=== PATIENT | male | born 1945 | race Caucasian/White ===

== ENCOUNTER 2020-09-06 03:37 | Inpatient (IN) | payer OTHER, MEDICARE ==
[~2020-09-06] VITALS: Ht 177.8 cm; Wt 84.4 kg
[~2020-09-06 03:37] MED LIST: ALLO300T PO; ASPI325T14 PO; ATOR80TA PO; CARB1DRO8 OP; CLOP75TA52 PO; ISOS60TA2 PO; LISI40TA PO; METF500T17 PO; METO50TA6 PO; OMEP20CA19 PO; RANO500T2 PO; ROPI0.254 PO
[2020-09-06] MEDS ORDERED: TYLENOL PO STA (04:20)
--- NOTE | 2020-09-06 04:25 | ER.PDOC ---
General Chief Complaint: Requesting Medical Care Stated Complaint: COUGH,CHILLS,CONGESTION,VOMITING Time seen by MD: 04:24 Source: patient Exam Limitations: no limitations History of Present Illness Initial Comments Fever, chills, cough, congestion and SOB for 2 days. Timing/Duration: gradual Severity: moderate Associated Symptoms: fever/chills, runny nose, cough, mild SOB Allergies: Coded Allergies: No Known Drug Allergies (Verified Allergy, Unknown, 05/20/20) Home Meds Active Scripts Metformin Hcl (METFORMIN HCL) 500 Mg Tablet, 500 MG PO BID, #60 TAB Prov:TERRI MASTERS DO 05/21/20 Ranolazine (RANEXA) 500 Mg Tab.er.12h, 500 MG PO BID for 30 Days, TAB Prov:TERRI MASTERS E DO 05/21/20 Reported Medications Allopurinol (ALLOPURINOL) 300 Mg Tablet, 300 MG PO DAILY24, TAB 05/19/20 Ropinirole Hcl (ROPINIROLE HCL) 0.25 Mg Tablet, 0.25 MG PO DAILY24, TAB 05/19/20 Aspirin (ASPIRIN) 325 Mg Tablet, 325 MG PO DAILY24, TABLET 05/19/20 Carboxymethylcellulose Sodium (LUBRICANT EYE DROPS) 1 Each Droperette, 1 EACH OP QID, DROP 05/19/20 Omeprazole (OMEPRAZOLE) 20 Mg Capsule.dr, 20 MG PO TIW, CAPSULE 05/19/20 Isosorbide Mononitrate (ISOSORBIDE MONONITRATE ER) 60 Mg Tab.er.24h, 60 MG PO DAILY24, TABLET 05/19/20 Metoprolol Tartrate 50MG (LOPRESSER 50MG) 50 Mg Tablet, 50 MG PO BID for HYPERTENSION, #60 TAB 05/19/20 Clopidogrel Bisulfate (PLAVIX) 75 Mg Tablet, 75 MG PO DAILY24, TAB 05/19/20 Atorvastatin 80MG (LIPITOR 80MG) 80 Mg Tablet, 80 MG PO DAILY24, TAB 05/19/20 Lisinopril (LISINOPRIL) 40 Mg Tablet, 40 MG PO DAILY24, TAB 05/19/20 Constitutional: see HPI EENTM: see HPI Respiratory: see HPI Cardiovascular: no symptoms reported Gastrointestinal: no symptoms reported All Other Systems: Reviewed and Negative Past Medical History Medical History: coronary artery disease, cardiac problems, GERD, high cholesterol, heart attack, hypertension, vascular disease Surgical History: cardiac cath, coronary bypass surgery, pacemaker/ICD, stent Family History Significant Family History: no pertinent family hx Social History Smoking: non-smoker Drug Use: none Physical Exam General Appearance: alert, no distress Nose: nose nml Throat: pharynx nml, airway nml Neck: nml inspection, supple Respiratory: no resp.distress, rales Abdomen: non-tender, no organomegaly CVS: reg rate & rhythm, heart sounds nml Skin: color nml, no rash, warm/dry Extremities: non-tender, nml ROM, no pedal edema NEURO/PSYCH: oriented x 3, CN's nml as tested, motor nml, sensation nml, mood/affect nml Results/Orders Results/Orders Orders - CHRISTOS LOVE MD Arterial Blood Gas (09/06/20 04:20) Cbc With Auto Diff (09/06/20 04:20) Creatine Kinase Mb (09/06/20 04:20) Troponin I (09/06/20 04:20) PT (09/06/20 04:20) Partial Thromboplastin Time. (09/06/20 04:20) Ekg-Routine (09/06/20 04:20) Xr Chest 1v (09/06/20 04:20) Influenza A&B (09/06/20 04:20) Strep Screen (09/06/20 04:20) Covid19 Antigen Ayaka Meredith (09/06/20 04:20) Lactic Acid(Ml) (09/06/20 04:20) Procalcitonin (09/06/20 04:20) Acetaminophen (Tylenol) (09/06/20 04:20) Acetaminophen (Tylenol) (09/06/20 05:04) Lactate Dehydrogenase (09/06/20 05:09) Ferritin(Ml) (09/06/20 05:09) C-Reactive Protein (09/06/20 05:09) Ct Chest Wo Iv Contrast (09/06/20 05:31) Comprehensive Metabolic Panel (09/06/20 05:46) Vital Signs Date Time Temp Pulse Resp B/P (MAP) Pulse Ox O2 Delivery O2 Flow Rate FiO2 09/06/20 04:30 100.8 68 20 09/06/20 04:30 100.8 20 120/50 (73) 90 Room Air 09/06/20 04:30 100.8 68 20 90 Administered Medications Medications (Trade) Dose Ordered Sig/Jose Alfredo Route PRN Reason Start Time Stop Time Status Last Admin Dose Admin Acetaminophen (Tylenol) 1,000 mg STAT STAT PO 09/06/20 04:20 09/06/20 04:25 DC 09/06/20 05:05 1,000 MG Laboratory Tests Test 09/06/20 04:30 09/06/20 04:45 09/06/20 04:52 09/06/20 05:57 White Blood Count 10.7 10^3/uL (4.5-11.0) Red Blood Count 4.64 10^6/uL (4.50-5.90) Hemoglobin 13.5 g/dL (13.9-16.3) L Hematocrit 40.9 % (37.0-53.0) Mean Corpuscular Volume 88.1 fL (78-100) Mean Corpuscular Hemoglobin 29.1 pg (26-34) Mean Corpuscular Hemoglobin Concent 33.0 g/dL (33-36.5) Red Cell Distribution Width 14.7 % (11.5-14.5) H Platelet Count 196 10^3/uL (150-400) Mean Platelet Volume 10.5 fL (7.8-11.0) Neutrophils (%) (Auto) 87.3 % (41.0-85.0) H Lymphocytes (%) (Auto) 5.6 % (24.0-44.0) *L Monocytes (%) (Auto) 5.9 % (5.0-12.0) Neutrophils # (Auto) 9.4 10^3/uL (1.8-7.7) H Lymphocytes # (Auto) 0.60 10^3/uL1 (1.0-4.8) L Monocytes # (Auto) 0.6 10^3/uL (0.3-0.8) Absolute Immature Granulocyte (auto 0.02 10^3 u/L (0-2) Absolute Eosinophils (auto) 0.1 10^3/uL (0.0-0.2) Immature Granulocytes % 0.20 % (0.00-0.50) Eosinophils % 0.8 % (0.0-5.0) Basophils % 0.2 % (0.0-0.2) Basophils # 0.0 10^3/uL (0.0-0.1) Prothrombin Time 10.4 SEC (9.3-11.3) Prothrombin Time INR (Non-Therap) 1.0 Activated Partial Thromboplast Time 22.7 SEC (24.67-30.72) Sodium Level 145 mmol/L (132-145) Potassium Level 4.3 mmol/L (3.6-5.2) Chloride Level 109.0 mmol/L (96-109) Carbon Dioxide Level 25.8 mmol/L (20.0-32) Anion Gap 14.5 Blood Urea Nitrogen 28 mg/dL (7-18) H Creatinine 1.15 mg/dL (0.59-1.40) Estimated GFR () 74.6 (>/=60) Est GFR (CKD-EPI)(Non-Afr [place]) 61.7 (>/=60) BUN/Creatinine Ratio 24.0 Glucose Level 118 mg/dL (70-110) H Lactic Acid Level 1.4 mmol/L (0.5-1.9) Calcium Level 8.8 mg/dL (8.4-10.5) Ferritin 42 ng/mL (26-388) Total Bilirubin 0.6 mg/dL (0.2-1.0) Aspartate Amino Transferase (AST) 19 U/L (0-35) Alanine Aminotransferase (ALT) 24 U/L (12-78) Alkaline Phosphatase 85 U/L (50-136) Lactate Dehydrogenase 228 U/L (85-227) H Creatine Kinase MB 1.1 ng/mL (0.5-3.6) Troponin I < 0.02 ng/mL (0.00-0.05) C-Reactive Protein 0.55 mg/dL (0.00-5.00) Total Protein 6.4 g/dL (6.4-8.2) Albumin 3.8 g/dL (3.4-5.0) Globulin 2.6 Albumin/Globulin Ratio 1.461 Procalcitonin 0.06 ng/mL (0.05-0.5) Blood Gas Sample Site RB Blood pH 7.445 (7.350-7.450) Blood Gas PCO2 31.5 mmHg (35.0-45.0) L Blood Gas PO2 55.4 mmHg (80.0-100.0) L Blood Gas HCO3 21.2 mmol/L (22.0-26.0) L Blood Gas Base Excess -2.0 mmol/L (-2.0-2.0) Maxx Test POSITIVE Arterial Blood Oxygen Saturation 89.6 % (94.0-97.00) L Deoxyhemoglobin 10.3 % (0.0-5.0) H Carboxyhemoglobin 0.7 % (0.0-3.9) Methemoglobin 0.1 % (0.00-5.0) Total Hemoglobin 13.6 % (12.0-17.8) Total Oxygen Concentration 17.0 % (13.5-17.5) Blood Gas Temperature 37 Oxygen Delivery Method ROOM AIR FiO2 21 % (20-101) Total Carbon Dioxide 22.1 mmol/L (23-27) L SARS-CoV-2 Antigen (Rapid) NEGATIVE (NEGATIVE) Influenza Type A Antigen NEGATIVE (NEG) Influenza B Immunofluorescence NEGATIVE (NEG) Group A Streptococcus Screen POSITIVE (NEGATIVE) EKG/XRAY/CT/US EKG: NSR, LBBB, no ST T wave changes EKG Comments: rate 65 CT Comments: Multi lobar infiltrates , left greater than right ER DEPART Departure Time of Disposition: 06:30 Disposition: 09 ADMITTED INPATIENT Impression: Primary Impression: Respiratory failure with hypoxia Additional Impression: Pneumonia Condition: Stable Referrals: SMITA DEL RIO MD (PCP) PRIMARY CARE PROVIDER Comments Admitted to Dr. Hanley Duration or Time Spent with Pa: 60 min Problem Qualifiers Primary Impression: Respiratory failure with hypoxia Chronicity: acute Qualified Codes: J96.01 - Acute respiratory failure with hypoxia Additional Impression: Pneumonia Pneumonia type: due to unspecified organism Laterality: bilateral Lung location: unspecified part of lung Qualified Codes: J18.9 - Pneumonia, unspecified organism CHRISTOS LOVE MD Sep 06, 2020 04:25
--- NOTE | 2020-09-06 04:28 | PCM.EKG ---
[facility] Test Date: 2020-09-06 Test Time: 04:23:18 Pat Name: LUKAS MIMS Department: Room: Gender: M [employer]: PRECIOUS : 1945 Requested By: CHRISTOS LOVE Order Number: [id number] Reading MD: Christos LOVE Measurements Intervals [place] Rate: 65 P: -22 [place]: 139 QRS: -20 QRSD: 148 T: 33 QT: 458 QTc: 477 Interpretive Statements Sinus rhythm Left atrial enlargement Right bundle branch block Compared to ECG 05/20/2020 10:27:25 Atrial abnormality now present Electronically Signed On 09-07-2020 1:02:33 [employer] by Christos LOVE Please click the below link to view image of tracing.
[2020-09-06 04:30] VITALS: BP 120/50
[2020-09-06 04:39] LABS: BASOPHIL % 0.2 % (0.0-0.2); EOSINOPHIL # 0.1 10^3/uL (0.0-0.2); EOSINOPHIL % 0.8 % (0.0-5.0); LYMPHOCYTES % 5.6 % (24.0-44.0); MEAN CORP HGB 29.1 pg (26-34); MONOCYTES # 0.6 10^3/uL (0.3-0.8); MONOCYTES % 5.9 % (5.0-12.0); NEUTROPHIL # 9.4 10^3/uL (1.8-7.7); NEUTROPHILS % 87.3 % (41.0-85.0); PLATELET COUNT 196 10^3/uL (150-400); RED CELL DISTRIBUTION WIDTH 14.7 % (11.5-14.5)
[2020-09-06 04:55] LABS: ABG PCO2 31.5 mmHg (35.0-45.0); ABG PH 7.445 (7.350-7.450); HCO3act 21.2 mmol/L (22.0-26.0); pO2 55.4 mmHg (80.0-100.0)
--- NOTE | 2020-09-06 04:59 | DIREP ---
PROCEDURE:CHEST 1 VIEW COMPARISON:[facility], CR, XRAY CHEST SINGLE VW, 05/19/2020, 08:38 PM. INDICATIONS:Cough and SOB FINDINGS: LUNGS/PLEURA:New area of airspace consolidation within the left perihilar region. Interval clearing of the right upper lung. VASCULATURE:Normal. Unremarkable pulmonary vasculature. CARDIAC:Normal. No cardiac silhouette abnormality or cardiomegaly. MEDIASTINUM:Normal. No visible mass or adenopathy. BONES:Normal. No fracture or visible bony lesion. OTHER:Stable left-sided cardiac pacing device. Median sternotomy wire CONCLUSION:Improved appearance of the right upper lung with new focus of airspace disease in the left perihilar lung. Dictated by: Jorge Benites DO on 09/06/2020 at 04:52 AM
[2020-09-06] MEDS ORDERED: TYLENOL PO ONE (05:04)
--- NOTE | 2020-09-06 05:15 | NUR ---
PT STATUS PT WAS TRIAGED AT 0355. AFTER DR. SHER SPOKE WITH PATIENT AN IV WAS STARTED AND LABS WERE DRAWN. PT WAS COVID SWABBED AT 0425. PT ALSO HAD A CHEST XRAY AND AN ABG DONE. ABG SHOWED THAT O2 WAS LOW, SO PT WAS PUT ON 2L OF OXYGEN VIA NC, OXYGEN HAS COME UP TO 95%. STILL AWAITING RESULTS OF CHEST XRAY AND COVID TEST AT THIS TIME, WILL CONTINUE TO MONITOR.
[2020-09-06 06:03] LABS: CALCIUM 8.8 mg/dL (8.4-10.5); CARBON DIOXIDE 25.8 mmol/L (20.0-32)
--- NOTE | 2020-09-06 06:03 | NUR ---
PT WAS SWABBED FOR FLU AND STREP AT 0557, AND THE WERE DROPPED OFF AT THE LAB AT 0600. PT'S COVID SWAB CAME BACK NEGATIVE. WILL CONTINUE TO MONITOR.
--- NOTE | 2020-09-06 06:12 | DIREP ---
PROCEDURE:CT CHEST W/O COMPARISON:None. INDICATIONS:Cough and SOB TECHNIQUE:Helical sections through the chest were performed from the lung apices through the diaphragms without IV contrast. Sagittal and coronal reconstructions are obtained from source images. FINDINGS: LUNGS:Patchy multi lobar infiltrates within the left lung upper and lower lobes. Patchy airspace disease also noted within the right upper lobe posteriorly.. PLEURA:Normal. No mass or effusion. CARDIAC:Cardiomegaly. Significant [place] coronary artery disease with post CABG changes.. MEDIASTINUM:Normal. No mass or adenopathy. MARIBEL:Normal. No mass or adenopathy. AORTA:Normal. No aneurysm. CHEST WALL:Normal. No mass or axillary adenopathy. LIMITED ABDOMEN:Significant atherosclerosis of the abdominal aorta. Limited images of the upper abdomen are unremarkable. BONES:Normal. No bony lesion or fracture. OTHER:Negative. CONCLUSION:Multi lobar infiltrates , left greater than right Dictated by: Jorge Benites DO on 09/06/2020 at 06:05 AM
--- NOTE | 2020-09-06 06:16 | NUR ---
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 EDP DR. LOVE AWARE
[2020-09-06] MEDS ORDERED: ZITHROMAX 500 MG in NS 250ML 250 ML IV STA ×2 (06:31→08:24)
[2020-09-06] MEDS ORDERED: ROCEPHIN 1,000 MG in NS 100ML 100 ML IV STA ×2 (06:31→08:24)
[2020-09-06] MEDS ORDERED: ATOR40TA PO (06:33)
[2020-09-06] MEDS ORDERED: ISOS30TA4 PO (06:33)
[2020-09-06] MEDS ORDERED: LISI-410 PO (06:33)
[2020-09-06] MEDS ORDERED: METO25TA4 PO (06:33)
[2020-09-06] MEDS ORDERED: CLOP75TA PO (06:33)
[2020-09-06] MEDS ORDERED: NS 250ML 250 ML IV ONE (08:11)
[2020-09-06] MEDS ORDERED: ROCEPHIN ONE (08:11)
[2020-09-06 08:32] LABS: LYMPHOCYTE 12 % (25-36); MONOCYTE 5 % (3-9); SEGMENTED NEUTROPHILS 83 % (31-76)
[2020-09-06 09:00] VITALS: BP 117/53
[2020-09-06] MEDS ORDERED: VENTOLIN IH PRN (09:00)
--- NOTE | 2020-09-06 09:00 | NUR ---
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
--- NOTE | 2020-09-06 09:02 | PCM.HP ---
History of Present Illness Reason for Visit: URI symptoms History of Present Illness Pt is a 75 y/o M with PMHx notable for extensive Cardiac disease, CAD s/p multiple CABGs and stents currently on DAPT, severe PAD s/p arterial bypasses, HFpEF, HTN, HLD, who presented to the ED with symptoms of rhinorrhea, subjective fever, sore throat, and mild shob that started just yesterday. He denies any other symptoms of chest pain, LH/dizziness, sputum production, abdominal pain, n/v/d/d, urinary symptoms. He also denies sick contacts, but does mention a recent trip [~3 weeks ago] to [place] to visit a cousin of his. Otherwise no travel. In the ED, he was noted to be mildly febrile to 100.8F, but otherwise hemody namically stable. Per ED provider, he was hypoxemic at one point, but this was not documented amongst his vitals. His ABG showed PaO2 of 52, however. His labs were overall unremarkable beyond a positive Rapid Strep A test. COVID testing was negative, as were troponin, BNP, and WBC. CXR, however, showed a consolidation in the Left Perihilar region, and CT Chest showed "Patchy multi lobar infiltrates within the left lung upper and lower lobes. Patchy airspace disease also noted within the right upper lobe posteriorly". By the time I saw the patient on the general medical floor, he was satting 95% on RA and virtually asymptomatic. However, given his heart history and other comorbidities, he agreed to stay for further monitoring and antibiotics Travel Hx EBOLA RISK:Travel to/contact w: No Review of Systems Other Review of systems including general, HEENT, neck, cardiopulmonary, GI, , neuro-musculoskeletal, hematologic, oncologic, endocrinology, infectious disease, dermatologic and psychiatric were reviewed with the patient and are negative unless otherwise noted in the HPI. Exam Vital Signs Vital Signs Date Time Temp Pulse Resp B/P (MAP) Pulse Ox O2 Delivery O2 Flow Rate FiO2 09/06/20 04:30 100.8 68 20 09/06/20 04:30 120/50 (73) 90 Room Air General Appearance: Alert, Oriented X3, Cooperative, No acute distress HEENT: Atraumatic, PERRLA, EOMI, Mucous membr. moist/pink Respiratory: Other (Some faint rales in Right lower lobe. More diminished, with rales and occasional rhonchi in mid-lower left lung) Cardiovascular: Regular rate, Normal S1, Normal S2, No murmurs Abdominal: Normal bowel sounds, Soft, No tenderness, No hepatospenomegaly, No masses Extremities: No clubbing, No cyanosis, No edema, Normal pulses, No tenderness/swelling Skin: No rash, No breakdown, No lesions Neuro: Normal speech, Strength at 5/5 X4 ext, Normal tone, Sensation intact Psych/Mental Status: Mental status NL, Mood NL Meds/Labs/Orders Medication List: Current Medications Medications (Trade) Dose Ordered Sig/Jose Alfredo PRN Reason Start Time Stop Time Status Last Admin Azithromycin 500 mg/Sodium Chloride 250 ml @ 175 mls/hr STAT STAT 09/06/20 08:24 09/06/20 09:49 09/06/20 08:27 Ceftriaxone Sodium 1000 mg/ Sodium Chloride 100 ml @ 100 mls/hr STAT STAT 09/06/20 08:24 09/06/20 09:23 09/06/20 08:27 Lab results: Laboratory Tests Test 09/06/20 04:30 09/06/20 04:45 09/06/20 04:50 09/06/20 04:52 White Blood Count 10.7 10^3/uL Red Blood Count 4.64 10^6/uL Hemoglobin 13.5 g/dL Hematocrit 40.9 % Mean Corpuscular Volume 88.1 fL Mean Corpuscular Hemoglobin 29.1 pg Mean Corpuscular Hemoglobin Concent 33.0 g/dL Red Cell Distribution Width 14.7 % Platelet Count 196 10^3/uL Mean Platelet Volume 10.5 fL Neutrophils (%) (Auto) 87.3 % Lymphocytes (%) (Auto) 5.6 % Monocytes (%) (Auto) 5.9 % Neutrophils # (Auto) 9.4 10^3/uL Lymphocytes # (Auto) 0.60 10^3/uL1 Monocytes # (Auto) 0.6 10^3/uL Absolute Immature Granulocyte (auto 0.02 10^3 u/L Absolute Eosinophils (auto) 0.1 10^3/uL Immature Granulocytes % 0.20 % Eosinophils % 0.8 % Basophils % 0.2 % Basophils # 0.0 10^3/uL Prothrombin Time 10.4 SEC Prothrombin Time INR (Non-Therap) 1.0 Activated Partial Thromboplast Time 22.7 SEC Sodium Level 145 mmol/L Potassium Level 4.3 mmol/L Chloride Level 109.0 mmol/L Carbon Dioxide Level 25.8 mmol/L Anion Gap 14.5 Blood Urea Nitrogen 28 mg/dL Creatinine 1.15 mg/dL Estimated GFR () 74.6 Est GFR (CKD-EPI)(Non-Afr Eritrean) 61.7 BUN/Creatinine Ratio 24.0 Glucose Level 118 mg/dL Lactic Acid Level 1.4 mmol/L Calcium Level 8.8 mg/dL Ferritin 42 ng/mL Total Bilirubin 0.6 mg/dL Aspartate Amino Transf (AST/SGOT) 19 U/L Alanine Aminotransferase (ALT/SGPT) 24 U/L Alkaline Phosphatase 85 U/L Lactate Dehydrogenase 228 U/L Creatine Kinase MB 1.1 ng/mL Troponin I < 0.02 ng/mL C-Reactive Protein 0.55 mg/dL Total Protein 6.4 g/dL Albumin 3.8 g/dL Globulin 2.6 Albumin/Globulin Ratio 1.461 Procalcitonin 0.06 ng/mL Blood Gas Sample Site RB Blood Gas pH 7.445 Blood Gas PCO2 31.5 mmHg Blood Gas PO2 55.4 mmHg Blood Gas HCO3 21.2 mmol/L Blood Gas Base Excess -2.0 mmol/L Maxx Test POSITIVE Arterial Blood Oxygen Saturation 89.6 % Deoxyhemoglobin 10.3 % Carboxyhemoglobin 0.7 % Methemoglobin 0.1 % Total Hemoglobin 13.6 % Total Oxygen Concentration 17.0 % Blood Gas Temperature 37 Oxygen Delivery Method (LAB) ROOM AIR FiO2 21 % Total Carbon Dioxide 22.1 mmol/L Differential Total Cells Counted 100 #CELLS Segmented Neutrophils 83 % Lymphocytes 12 % Monocytes 5 % Platelet Estimate ADEQUATE Platelet Morphology NORMAL Blood Morphology Comment NORMAL MORPHOLOGY SARS-CoV-2 Antigen (Rapid) NEGATIVE Test 09/06/20 05:57 09/06/20 06:22 Influenza Type A Antigen NEGATIVE Influenza B Immunofluorescence NEGATIVE Group A Streptococcus Screen POSITIVE Nasal Adenovirus (PCR) NotDetected Nasal Coronavirus Type 229E (PCR) NotDetected Nasal Coronavirus Type HKU1 (PCR) NotDetected Nasal Coronavirus Type NL63 (PCR) NotDetected Nasal Coronavirus Type OC43 (PCR) NotDetected Nasal Enterovirus/Rhinovirus (PCR) NotDetected Nasal Influenza Type A (H1) (PCR) NotDetected Nasal Influenza Type A (H3) (PCR) NotDetected Nasal Swab Influenza Virus B (PCR) NotDetected Nasal Parainfluenza Type 1 (PCR) NotDetected Nasal Parainfluenza Type 2 (PCR) NotDetected Nasal Parainfluenza Type 3 (PCR) NotDetected Nasal Parainfluenza Type 4 (PCR) NotDetected Nasal Resp Syncytial Virus (PCR) NotDetected Nasal Bordetella pertussis DNA (PCR NotDetected Nasal Chlamydophila pneumoniae (PCR NotDetected Nasal Human Metapneumovirus (PCR) NotDetected Nasal Mycoplasma pneumoniae (PCR) NotDetected Nasal SARS-CoV-2 (PCR) NotDetected Influenza Type A (H1N1/) (PCR) NotDetected Assessment/Plan Assessment/Plan Assessment/Plan Pt is a 75 y/o M with PMHx notable for extensive Cardiac disease, CAD s/p multiple CABGs and stents currently on DAPT, severe PAD s/p arterial bypasses, HFpEF, HTN, HLD, who was admitted for Community Acquired PNA. Blood cultures were obtained in the ED and he was started on Rocephin/Azithro. He was admitted to inpatient medicine under observation for further monitoring given his extensive cardiac history. Given his appearance on my evaluatioon, if he continues to do this well he will likely be able to go home tomorrow Community Acquired Pneumonia Hypoxemia Strep A Pharyngitis - ABG with PaO2 of 52, CXR and CT chest showing multilobar airspace disease L > R - continue Rocephin/Azithro for empiric coverage - follow blood and sputum cultures - duonebs q6h - continuous Pulse Ox - supplemental O2 as needed - monitor on Telemetry CAD HFpEF HTN HLD PAD - continue Pt's home medications VTE ppx: none for now GI ppx: n/a Diet: Cardiac CODE: bag hanger Spent: > 70 min spent in chart review, patient evaluation, coordination of care, and documentation ALBERTO BOYLE DO Sep 06, 2020 09:02
[2020-09-06] MEDS: METAMUCIL PO SCH (09:49)
[2020-09-06 12:47] VITALS: BP 131/49
[2020-09-06 17:18] VITALS: BP 131/52
[2020-09-06 19:35] VITALS: BP 126/63
[2020-09-07] VITALS (8 sets, daily range): BP systolic 110–146; BP diastolic 52–76
--- NOTE | 2020-09-07 05:12 | NUR ---
client's O2 sat decreased during shift. oxygen is given per NC 0500 client had blood colored sputum. RN obtained and sent to lab. Addendum: 09/07/20 at 0525 by APOLONIA YING RN, RAC RN note is not complete.
--- NOTE | 2020-09-07 05:16 | NUR ---
client's O2 sat decreased during shift. oxygen is given per NC 5L O2 sat us 0500 client had blood colored sputum. ALYCIA obtained and sent to lab. Addendum: 09/07/20 at 0525 by APOLONIA YING RN, RAC RN note is not complete. Addendum: 09/07/20 at 0525 by APOLONIA YING RN, RAC RN note is not complete.
--- NOTE | 2020-09-07 05:19 | NUR ---
client's O2 sat decreased during shift. oxygen is given per NC 5L O2 sat is 94%. 0400 O2 sat is 99% decreased Oxygen to 3L then O2 decreased to 91%. increased O2 to 4L and O2 sat increased to 95%. client has been compliant to IS. 0500 client had blood colored sputum. RN obtained and sent to lab.
[2020-09-07] MEDS: ZITHROMAX PO SCH (09:10)
[2020-09-07] MEDS: ROCEPHIN 2,000 MG in NS 100ML 100 ML IV SCH (09:11)
[2020-09-07] MEDS: METAMUCIL PO SCH (09:37)
[2020-09-07] MEDS ORDERED: ASPIRIN PO SCH (10:30)
[2020-09-07] MEDS ORDERED: ZYLOPRIM PO SCH (10:30)
[2020-09-07] MEDS ORDERED: REQUIP PO SCH ×3 (10:30→21:00)
[2020-09-07] MEDS: IMDUR PO SCH (11:00)
[2020-09-07] MEDS: ZYLOPRIM PO SCH (11:00)
[2020-09-07] MEDS: LOPRESSER PO SCH ×2 (11:00→20:37)
[2020-09-07] MEDS: ASPIRIN PO SCH (11:00)
--- NOTE | 2020-09-07 20:48 | NUR ---
client's temp is 100.8 no chills. notified charge nurse per protocol. 2046 client's temp is 100.3 no chills charge nurse notified that Tylenol is not ordered.
[2020-09-07] MEDS ORDERED: LIPITOR PO SCH (21:00)
[2020-09-07] MEDS ORDERED: PLAVIX PO SCH (21:00)
[2020-09-07] MEDS ORDERED: LOVENOX SQ SCH (23:00)
--- NOTE | 2020-09-07 23:47 | PRM.PN ---
Subjective Subjective Pt s/e this AM at bedside. He looks well and states he feels well and has no new symptoms, but was noted to be more hypoxemic overnight needing up to 5L NC. He is on 2L NC this AM and desats to as low as 88% when on RA only. Beyond this, he has no new or worsened symptoms Review of Systems Other Review of systems including general, HEENT, neck, cardiopulmonary, GI, , neuro-musculoskeletal, hematologic, oncologic, endocrinology, infectious disease, dermatologic and psychiatric were reviewed with the patient and are negative unless otherwise noted in the HPI. Exam Vital Signs Vital Signs Date Time Temp Pulse Resp B/P (MAP) Pulse Ox O2 Delivery O2 Flow Rate FiO2 09/07/20 20:47 100.3 09/07/20 20:37 72 139/63 09/07/20 20:35 18 92 Nasal Cannula 2.50 30 General Appearance: Alert, Oriented X3, Cooperative, No acute distress HEENT: Atraumatic, PERRLA, Mucous membr. moist/pink, Other (on 2L NC) Respiratory: Other (diminished. mostly on left. with scattered rales) Cardiovascular: Regular rate, Normal S1, Normal S2, No murmurs Abdominal: Normal bowel sounds, Soft, No tenderness, No hepatospenomegaly, No masses Extremities: No clubbing, No cyanosis, No edema, Normal pulses Skin: No rash, No breakdown, No lesions Neuro: Normal speech, Strength at 5/5 X4 ext, Normal tone, Sensation intact Psych/Mental Status: Mental status NL, Mood NL Meds/Labs/Orders Medication List: Current Medications Medications (Trade) Dose Ordered Sig/Jose Alfredo PRN Reason Start Time Stop Time Status Last Admin Albuterol Sulfate (Ventolin) 2.5 mg RTQ2 PRN SHORTNESS OF BREATH 09/06/20 09:00 10/06/20 08:59 Allopurinol (Zyloprim) 300 mg DAILY 09/07/20 11:00 10/07/20 10:29 09/07/20 11:00 Aspirin (Aspirin) 325 mg DAILY 09/07/20 11:00 10/07/20 10:29 09/07/20 11:00 Atorvastatin Calcium (Lipitor) 40 mg HS 09/07/20 21:00 10/07/20 20:59 09/07/20 20:36 Azithromycin (Zithromax) 200 mg DAILY 09/07/20 09:00 10/07/20 08:59 09/07/20 09:10 Ceftriaxone Sodium 2000 mg/ Sodium Chloride 100 ml @ 100 mls/hr Q24HRS 09/07/20 09:00 10/07/20 08:59 09/07/20 09:11 Clopidogrel Bisulfate (Plavix) 75 mg HS 09/07/20 21:00 10/07/20 20:59 09/07/20 20:36 Isosorbide Mononitrate (Imdur) 30 mg DAILY 09/07/20 10:30 10/07/20 10:29 09/07/20 11:00 Metoprolol Tartrate (Lopresser) 25 mg BID 09/07/20 10:30 10/07/20 10:29 09/07/20 20:37 Psyllium Hydrophilic Mucilloid (Metamucil) 1 each DAILY 09/06/20 09:00 10/06/20 08:59 09/07/20 09:37 Ropinirole HCl (Requip) 0.25 mg HS 09/07/20 21:00 10/07/20 10:29 09/07/20 20:36 Lab results: Laboratory Tests Test 09/06/20 04:30 09/06/20 04:45 09/06/20 04:50 09/06/20 04:52 White Blood Count 10.7 10^3/uL Red Blood Count 4.64 10^6/uL Hemoglobin 13.5 g/dL Hematocrit 40.9 % Mean Corpuscular Volume 88.1 fL Mean Corpuscular Hemoglobin 29.1 pg Mean Corpuscular Hemoglobin Concent 33.0 g/dL Red Cell Distribution Width 14.7 % Platelet Count 196 10^3/uL Mean Platelet Volume 10.5 fL Neutrophils (%) (Auto) 87.3 % Lymphocytes (%) (Auto) 5.6 % Monocytes (%) (Auto) 5.9 % Neutrophils # (Auto) 9.4 10^3/uL Lymphocytes # (Auto) 0.60 10^3/uL1 Monocytes # (Auto) 0.6 10^3/uL Absolute Immature Granulocyte (auto 0.02 10^3 u/L Absolute Eosinophils (auto) 0.1 10^3/uL Immature Granulocytes % 0.20 % Eosinophils % 0.8 % Basophils % 0.2 % Basophils # 0.0 10^3/uL Prothrombin Time 10.4 SEC Prothrombin Time INR (Non-Therap) 1.0 Activated Partial Thromboplast Time 22.7 SEC Sodium Level 145 mmol/L Potassium Level 4.3 mmol/L Chloride Level 109.0 mmol/L Carbon Dioxide Level 25.8 mmol/L Anion Gap 14.5 Blood Urea Nitrogen 28 mg/dL Creatinine 1.15 mg/dL Estimated GFR () 74.6 Est GFR (CKD-EPI)(Non-Afr Bahraini) 61.7 BUN/Creatinine Ratio 24.0 Glucose Level 118 mg/dL Lactic Acid Level 1.4 mmol/L Calcium Level 8.8 mg/dL Ferritin 42 ng/mL Total Bilirubin 0.6 mg/dL Aspartate Amino Transf (AST/SGOT) 19 U/L Alanine Aminotransferase (ALT/SGPT) 24 U/L Alkaline Phosphatase 85 U/L Lactate Dehydrogenase 228 U/L Creatine Kinase MB 1.1 ng/mL Troponin I < 0.02 ng/mL C-Reactive Protein 0.55 mg/dL Total Protein 6.4 g/dL Albumin 3.8 g/dL Globulin 2.6 Albumin/Globulin Ratio 1.461 Procalcitonin 0.06 ng/mL Blood Gas Sample Site RB Blood Gas pH 7.445 Blood Gas PCO2 31.5 mmHg Blood Gas PO2 55.4 mmHg Blood Gas HCO3 21.2 mmol/L Blood Gas Base Excess -2.0 mmol/L Maxx Test POSITIVE Arterial Blood Oxygen Saturation 89.6 % Deoxyhemoglobin 10.3 % Carboxyhemoglobin 0.7 % Methemoglobin 0.1 % Total Hemoglobin 13.6 % Total Oxygen Concentration 17.0 % Blood Gas Temperature 37 Oxygen Delivery Method (LAB) ROOM AIR FiO2 21 % Total Carbon Dioxide 22.1 mmol/L Differential Total Cells Counted 100 #CELLS Segmented Neutrophils 83 % Lymphocytes 12 % Monocytes 5 % Platelet Estimate ADEQUATE Platelet Morphology NORMAL Blood Morphology Comment NORMAL MORPHOLOGY SARS-CoV-2 Antigen (Rapid) NEGATIVE Test 09/06/20 05:57 09/06/20 06:22 09/06/20 12:34 09/06/20 16:04 Influenza Type A Antigen NEGATIVE Influenza B Immunofluorescence NEGATIVE Group A Streptococcus Screen POSITIVE Nasal Adenovirus (PCR) NotDetected Nasal Coronavirus Type 229E (PCR) NotDetected Nasal Coronavirus Type HKU1 (PCR) NotDetected Nasal Coronavirus Type NL63 (PCR) NotDetected Nasal Coronavirus Type OC43 (PCR) NotDetected Nasal Enterovirus/Rhinovirus (PCR) NotDetected Nasal Influenza Type A (H1) (PCR) NotDetected Nasal Influenza Type A (H3) (PCR) NotDetected Nasal Swab Influenza Virus B (PCR) NotDetected Nasal Parainfluenza Type 1 (PCR) NotDetected Nasal Parainfluenza Type 2 (PCR) NotDetected Nasal Parainfluenza Type 3 (PCR) NotDetected Nasal Parainfluenza Type 4 (PCR) NotDetected Nasal Resp Syncytial Virus (PCR) NotDetected Nasal Bordetella pertussis DNA (PCR NotDetected Nasal Chlamydophila pneumoniae (PCR NotDetected Nasal Human Metapneumovirus (PCR) NotDetected Nasal Mycoplasma pneumoniae (PCR) NotDetected Nasal SARS-CoV-2 (PCR) NotDetected Influenza Type A (H1N1/) (PCR) NotDetected Bedside Glucose 134 114 Test 09/06/20 19:38 Bedside Glucose 110 Assessment/Plan Assessment/Plan Assessment/Plan Pt is a 75 y/o M with PMHx notable for extensive Cardiac disease, CAD s/p multiple CABGs and stents currently on DAPT, severe PAD s/p arterial bypasses, HFpEF, HTN, HLD, who was admitted for Community Acquired PNA. Blood cultures were obtained in the ED and he was started on Rocephin/Azithro. He was admitted to inpatient medicine under observation for further monitoring given his extensive cardiac history. While he appears well clinically, he is more hypoxemic today than yesterday and requiring about 2L on average. 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
[2020-09-08 00:40] VITALS: BP 127/68
[2020-09-08 04:03] VITALS: BP 147/64
[2020-09-08 08:00] VITALS: BP 156/50
[2020-09-08] MEDS: ASPIRIN PO SCH (09:04)
[2020-09-08] MEDS: ZYLOPRIM PO SCH (09:05)
[2020-09-08] MEDS: IMDUR PO SCH (09:05)
[2020-09-08] MEDS: METAMUCIL PO SCH (09:05)
[2020-09-08] MEDS: ROCEPHIN 2,000 MG in NS 100ML 100 ML IV SCH (09:05)
[2020-09-08] MEDS: ZITHROMAX PO SCH (09:05)
[2020-09-08] MEDS: LOPRESSER PO SCH (09:05)
--- NOTE | 2020-09-08 11:19 | PRM.PN ---
Exam Vital Signs Vital Signs Date Time Temp Pulse Resp B/P (MAP) Pulse Ox O2 Delivery O2 Flow Rate FiO2 09/08/20 09:25 67 17 93 Nasal Cannula 2.50 30 09/08/20 09:05 156/50 09/08/20 08:00 98.0 Meds/Labs/Orders Medication List: Current Medications Medications (Trade) Dose Ordered Sig/Jose Alfredo PRN Reason Start Time Stop Time Status Last Admin Albuterol Sulfate (Ventolin) 2.5 mg RTQ2 PRN SHORTNESS OF BREATH 09/06/20 09:00 10/06/20 08:59 Allopurinol (Zyloprim) 300 mg DAILY 09/07/20 11:00 10/07/20 10:29 09/08/20 09:05 Aspirin (Aspirin) 325 mg DAILY 09/07/20 11:00 10/07/20 10:29 09/08/20 09:04 Atorvastatin Calcium (Lipitor) 40 mg HS 09/07/20 21:00 10/07/20 20:59 09/07/20 20:36 Azithromycin (Zithromax) 200 mg DAILY 09/07/20 09:00 10/07/20 08:59 09/08/20 09:05 Ceftriaxone Sodium 2000 mg/ Sodium Chloride 100 ml @ 100 mls/hr Q24HRS 09/07/20 09:00 10/07/20 08:59 09/08/20 09:05 Clopidogrel Bisulfate (Plavix) 75 mg HS 09/07/20 21:00 10/07/20 20:59 09/07/20 20:36 Enoxaparin Sodium (Lovenox) 40 mg Q24HRS 09/07/20 23:00 10/07/20 22:59 09/08/20 00:55 Isosorbide Mononitrate (Imdur) 30 mg DAILY 09/07/20 10:30 10/07/20 10:29 09/08/20 09:05 Metoprolol Tartrate (Lopresser) 25 mg BID 09/07/20 10:30 10/07/20 10:29 09/08/20 09:05 Psyllium Hydrophilic Mucilloid (Metamucil) 1 each DAILY 09/06/20 09:00 10/06/20 08:59 09/08/20 09:05 Ropinirole HCl (Requip) 0.25 mg HS 09/07/20 21:00 10/07/20 10:29 09/07/20 20:36 Lab results: Laboratory Tests Test 09/06/20 12:34 09/06/20 16:04 09/06/20 19:38 Bedside Glucose 134 114 110 My orders: Orders - ALBERTO BOYLE DO Cardiac Diet (09/06/20 Dinner) Atorvastatin Calcium (Lipitor) (09/07/20 21:00) Clopidogrel Bisulfate (Plavix) (09/07/20 21:00) Isosorbide Mononitrate (Imdur) (09/07/20 10:30) Metoprolol Tartrate (Lopresser) (09/07/20 10:30) Allopurinol (Zyloprim) (09/07/20 11:00) Aspirin (Aspirin) (09/07/20 11:00) Ropinirole Hcl (Requip) (09/07/20 21:00) Enoxaparin Sodium (Lovenox) (09/07/20 23:00) ALBERTO BOYLE DO Sep 08, 2020 11:19
[2020-09-08 12:33] VITALS: BP 169/53
[2020-09-08] MEDS ORDERED: LEVO750T5 PO (15:30)
--- NOTE | 2020-09-08 15:55 | PRM.DC ---
DC Summary Date of Discharge: Sep 08, 2020 Time of Request to Discharge: 15:54 Final Dx: Community Acquired Pneumonia Hypoxemia Strep A Pharyngitis CAD HFpEF HTN HLD PAD HPI/Course History of Present Illness Pt is a 75 y/o M with PMHx notable for extensive Cardiac disease, CAD s/p multiple CABGs and stents currently on DAPT, severe PAD s/p arterial bypasses, HFpEF, HTN, HLD, who presented to the ED with symptoms of rhinorrhea, subjective fever, sore throat, and mild shob that started just yesterday. He denies any other symptoms of chest pain, LH/dizziness, sputum production, abdominal pain, n/v/d/d, urinary symptoms. He also denies sick contacts, but does mention a r ecent trip [~3 weeks ago] to [place] to visit a cousin of his. Otherwise no travel. In the ED, he was noted to be mildly febrile to 100.8F, but otherwise hemodynamically stable. Per ED provider, he was hypoxemic at one point, but this was not documented amongst his vitals. His ABG showed PaO2 of 52, however. His labs were overall unremarkable beyond a positive Rapid Strep A test. COVID testing was negative, as were troponin, BNP, and WBC. CXR, however, showed a consolidation in the Left Perihilar region, and CT Chest showed "Patchy multi lobar infiltrates within the left lung upper and lower lobes. Patchy airspace disease also noted within the right upper lobe posteriorly". By the time I saw the patient on the general medical floor, he was satting 95% on RA and virtually asymptomatic. However, given his heart history and other comorbidities, he agreed to stay for further monitoring and antibiotics Hospital Course Pt is a 75 y/o M with PMHx notable for extensive Cardiac disease, CAD s/p multiple CABGs and stents currently on DAPT, severe PAD s/p arterial bypasses, HFpEF, HTN, HLD, who was admitted for Community Acquired PNA. Blood cultures were obtained in the ED and he was started on Rocephin/Azithro. He was continued on Rocephin/Azithro for empiric coverage of CAP. While he was satting well on RA the day of admission, he did become more hypoxemic that night, requiring 3-5L NC. He was still on 2L the following morning and desatted to 88% on RA. He was continued on treatment and monitored for another day. On Sep 08, he was noted to be satting > 93% on RA. An O2 walk challenge was performed to determine presence of hypoxemia with exertion, which he passed. He was otherwise afebrile and hemodynamically stable and felt ready to return home. He was discharged home to self-care in stable/improved condition on Sep 08 with Rx for 3 additional days of Levaquin to complete a 5 day regimen. He is to follow up with his PCP within 7 days of discharge Lab/Brad/BBK/Rad Laboratory Tests Test 09/06/20 04:30 09/06/20 04:45 09/06/20 04:50 09/06/20 04:52 White Blood Count 10.7 10^3/uL (4.5-11.0) Red Blood Count 4.64 10^6/uL (4.50-5.90) Hemoglobin 13.5 g/dL (13.9-16.3) Hematocrit 40.9 % (37.0-53.0) Mean Corpuscular Volume 88.1 fL (78-100) Mean Corpuscular Hemoglobin 29.1 pg (26-34) Mean Corpuscular Hemoglobin Concent 33.0 g/dL (33-36.5) Red Cell Distribution Width 14.7 % (11.5-14.5) Platelet Count 196 10^3/uL (150-400) Mean Platelet Volume 10.5 fL (7.8-11.0) Neutrophils (%) (Auto) 87.3 % (41.0-85.0) Lymphocytes (%) (Auto) 5.6 % (24.0-44.0) Monocytes (%) (Auto) 5.9 % (5.0-12.0) Neutrophils # (Auto) 9.4 10^3/uL (1.8-7.7) Lymphocytes # (Auto) 0.60 10^3/uL1 (1.0-4.8) Monocytes # (Auto) 0.6 10^3/uL (0.3-0.8) Absolute Immature Granulocyte (auto 0.02 10^3 u/L (0-2) Absolute Eosinophils (auto) 0.1 10^3/uL (0.0-0.2) Immature Granulocytes % 0.20 % (0.00-0.50) Eosinophils % 0.8 % (0.0-5.0) Basophils % 0.2 % (0.0-0.2) Basophils # 0.0 10^3/uL (0.0-0.1) Prothrombin Time 10.4 SEC (9.3-11.3) Prothrombin Time INR (Non-Therap) 1.0 Activated Partial Thromboplast Time 22.7 SEC (24.67-30.72) Sodium Level 145 mmol/L (132-145) Potassium Level 4.3 mmol/L (3.6-5.2) Chloride Level 109.0 mmol/L (96-109) Carbon Dioxide Level 25.8 mmol/L (20.0-32) Anion Gap 14.5 Blood Urea Nitrogen 28 mg/dL (7-18) Creatinine 1.15 mg/dL (0.59-1.40) Estimated GFR () 74.6 (>/=60) Est GFR (CKD-EPI)(Non-Afr Malaysian) 61.7 (>/=60) BUN/Creatinine Ratio 24.0 Glucose Level 118 mg/dL (70-110) Lactic Acid Level 1.4 mmol/L (0.5-1.9) Calcium Level 8.8 mg/dL (8.4-10.5) Ferritin 42 ng/mL (26-388) Total Bilirubin 0.6 mg/dL (0.2-1.0) Aspartate Amino Transf (AST/SGOT) 19 U/L (0-35) Alanine Aminotransferase (ALT/SGPT) 24 U/L (12-78) Alkaline Phosphatase 85 U/L (50-136) Lactate Dehydrogenase 228 U/L (85-227) Creatine Kinase MB 1.1 ng/mL (0.5-3.6) Troponin I < 0.02 ng/mL (0.00-0.05) C-Reactive Protein 0.55 mg/dL (0.00-5.00) Total Protein 6.4 g/dL (6.4-8.2) Albumin 3.8 g/dL (3.4-5.0) Globulin 2.6 Albumin/Globulin Ratio 1.461 Procalcitonin 0.06 ng/mL (0.05-0.5) Blood Gas Sample Site RB Blood Gas pH 7.445 (7.350-7.450) Blood Gas PCO2 31.5 mmHg (35.0-45.0) Blood Gas PO2 55.4 mmHg (80.0-100.0) Blood Gas HCO3 21.2 mmol/L (22.0-26.0) Blood Gas Base Excess -2.0 mmol/L (-2.0-2.0) Maxx Test POSITIVE Arterial Blood Oxygen Saturation 89.6 % (94.0-97.00) Deoxyhemoglobin 10.3 % (0.0-5.0) Carboxyhemoglobin 0.7 % (0.0-3.9) Methemoglobin 0.1 % (0.00-5.0) Total Hemoglobin 13.6 % (12.0-17.8) Total Oxygen Concentration 17.0 % (13.5-17.5) Blood Gas Temperature 37 Oxygen Delivery Method (LAB) ROOM AIR FiO2 21 % (20-101) Total Carbon Dioxide 22.1 mmol/L (23-27) Differential Total Cells Counted 100 #CELLS Segmented Neutrophils 83 % (31-76) Lymphocytes 12 % (25-36) Monocytes 5 % (3-9) Platelet Estimate ADEQUATE Platelet Morphology NORMAL Blood Morphology Comment NORMAL MORPHOLOGY SARS-CoV-2 Antigen (Rapid) NEGATIVE (NEGATIVE) Test 09/06/20 05:57 09/06/20 06:22 09/06/20 12:34 09/06/20 16:04 Influenza Type A Antigen NEGATIVE (NEG) Influenza B Immunofluorescence NEGATIVE (NEG) Group A Streptococcus Screen POSITIVE (NEGATIVE) Nasal Adenovirus (PCR) NotDetected (NotDetected) Nasal Coronavirus Type 229E (PCR) NotDetected (NotDetected) Nasal Coronavirus Type HKU1 (PCR) NotDetected (NotDetected) Nasal Coronavirus Type NL63 (PCR) NotDetected (NotDetected) Nasal Coronavirus Type OC43 (PCR) NotDetected (NotDetected) Nasal Enterovirus/Rhinovirus (PCR) NotDetected (NotDetected) Nasal Influenza Type A (H1) (PCR) NotDetected (NotDetected) Nasal Influenza Type A (H3) (PCR) NotDetected (NotDetected) Nasal Swab Influenza Virus B (PCR) NotDetected (NotDetected) Nasal Parainfluenza Type 1 (PCR) NotDetected (NotDetected) Nasal Parainfluenza Type 2 (PCR) NotDetected (NotDetected) Nasal Parainfluenza Type 3 (PCR) NotDetected (NotDetected) Nasal Parainfluenza Type 4 (PCR) NotDetected (NotDetected) Nasal Resp Syncytial Virus (PCR) NotDetected (NotDetected) Nasal Bordetella pertussis DNA (PCR NotDetected (NotDetected) Nasal Chlamydophila pneumoniae (PCR NotDetected (NotDetected) Nasal Human Metapneumovirus (PCR) NotDetected (NotDetected) Nasal Mycoplasma pneumoniae (PCR) NotDetected (NotDetected) Nasal SARS-CoV-2 (PCR) NotDetected (NotDetected) Influenza Type A (H1N1/09) (PCR) NotDetected (NotDetected) Bedside Glucose 134 (70 - 110) 114 (70 - 110) Test 09/06/20 19:38 Bedside Glucose 110 (70 - 110) Microbiology Date/Time Source Procedure Growth Status 09/07/20 05:00 Sputum Expectorated Sputum Gram Stain - Final Complete 09/07/20 05:00 Sputum Expectorated Sputum Sputum Culture - Final NO GROWTH AFTER 5 DAYS Complete 09/06/20 06:50 Blood Blood Culture - Final NO GROWTH AFTER 5 DAYS Complete 09/06/20 06:45 Blood Blood Culture - Final NO GROWTH AFTER 5 DAYS Complete Vitals/I&O VS - Last 72 Hours, by Label Date Time Temp Pulse Resp B/P (MAP) Pulse Ox O2 Delivery O2 Flow Rate FiO2 09/08/20 15:07 Room Air 09/08/20 12:33 99.2 72 18 169/53 (91) 93 09/08/20 09:25 67 17 93 Nasal Cannula 2.50 30 09/08/20 09:05 67 156/50 09/08/20 09:05 156/50 09/08/20 08:00 98.0 67 17 156/50 (85) 93 09/08/20 04:03 98.1 68 18 147/64 (91) 92 Nasal Canula 09/08/20 00:40 97.7 60 18 127/68 (87) 92 Nasal Canula 09/07/20 20:47 100.3 09/07/20 20:37 72 139/63 09/07/20 20:35 70 18 92 Nasal Cannula 2.50 30 09/07/20 20:04 100.8 72 18 139/63 (88) 92 Nasal Canula 2.00 09/07/20 19:59 Room Air 09/07/20 17:41 Room Air 09/07/20 17:36 98.5 67 18 146/76 (99) 92 09/07/20 12:07 98.0 73 17 132/62 (85) 94 09/07/20 11:00 74 110/52 09/07/20 11:00 110/52 09/07/20 09:00 68 18 95 Room Air 09/07/20 08:12 98.0 74 18 110/52 (71) 95 09/07/20 04:44 98.7 74 18 127/62 (83) 95 Nasal Canula 4.00 09/07/20 00:19 98.0 82 18 144/68 (93) 94 Nasal Canula 5.00 09/07/20 00:11 98.1 75 18 132/54 (80) 94 Nasal Canula 5.00 09/06/20 22:55 85 16 95 Nasal Cannula 5.00 40 09/06/20 22:05 94 Nasal Canula 5.00 09/06/20 22:03 91 Nasal Canula 4.00 09/06/20 22:01 91 Nasal Canula 3.00 09/06/20 22:00 88 Room Air 09/06/20 20:42 Room Air 09/06/20 20:41 Room Air 09/06/20 19:35 98.2 73 20 126/63 (84) 93 Room Air 09/06/20 17:18 98.4 72 20 131/52 (78) 92 09/06/20 12:47 98.1 75 20 131/49 (76) 93 09/06/20 10:33 76 20 94 Room Air 09/06/20 10:32 20 94 09/06/20 09:00 98.7 76 20 117/53 (74) 92 Room Air 09/06/20 09:00 Room Air 09/06/20 04:30 100.8 68 20 09/06/20 04:30 100.8 20 120/50 (73) 90 Room Air 09/06/20 04:30 100.8 68 20 90 Scheduled Allopurinol (Allopurinol), 300 MG PO DAILY24, (Reported) Aspirin (Aspirin), 325 MG PO DAILY24, (Reported) Atorvastatin 40MG (Lipitor 40MG), 1 TAB PO HS Carboxymethylcellulose Sodium (Lubricant Eye Drops), 1 EACH OP QID, (Reported) Clopidogrel Bisulfate (Clopidogrel), 1 TAB PO HS Isosorbide Mononitrate (Isosorbide Mononitrate Er), 1 TAB PO AM Levofloxacin (Levaquin), 750 MG PO DAILY Lisinopril (Lisinopril), 1 TAB PO HS Metformin Hcl (Metformin Hcl), 500 MG PO BID Metoprolol Tartrate 25MG (Lopresser 25MG), 25 MG PO BID Omeprazole (Omeprazole), 20 MG PO TIW, (Reported) Ropinirole Hcl (Ropinirole Hcl), 0.25 MG PO DAILY24, (Reported) Discontinued Medications Atorvastatin 80MG (Lipitor 80MG), 80 MG PO DAILY24, (Reported) Discontinued Reason: No Longer Taking Clopidogrel Bisulfate (Plavix), 75 MG PO DAILY24, (Reported) Discontinued Reason: Discontinue Isosorbide Mononitrate (Isosorbide Mononitrate Er), 60 MG PO DAILY24, (Reported) Discontinued Reason: No Longer Taking Lisinopril (Lisinopril), 40 MG PO DAILY24, (Reported) Discontinued Reason: No Longer Taking Metoprolol Tartrate 50MG (Lopresser 50MG), 50 MG PO BID, (Reported) Discontinued Reason: No Longer Taking Ranolazine (Ranexa), 500 MG PO BID Discontinued Reason: No Longer Taking Condition/Impression Stable/improved Activity Return to previous activity Diet Cardiac/Diabetic Diet Discharge Plan 1.) Follow up with your PCP within 7 days of discharge. 2.) START taking Levofloxacin 750mg daily for the next 3 days (starting Sep 09) 3.) CONTINUE taking all other medications as previously prescribed 4.) diet as tolerated. 5.) activity as tolerated Prescription/RX: Active Scripts Active Levaquin (Levofloxacin) 750 Mg Tablet 750 Mg PO DAILY Isosorbide Mononitrate Er (Isosorbide Mononitrate) 30 Mg Tab.er.24h 1 Tab PO AM Lopresser 25MG (Metoprolol Tartrate) 25 Mg Tablet 25 Mg PO BID Clopidogrel (Clopidogrel Bisulfate) 75 Mg Tablet 1 Tab PO HS Lipitor 40MG (Atorvastatin Calcium) 40 Mg Tablet 1 Tab PO HS Lisinopril 20 Mg Tablet 1 Tab PO HS Metformin Hcl 500 Mg Tablet 500 Mg PO BID Reported Allopurinol 300 Mg Tablet 300 Mg PO DAILY24 Ropinirole Hcl 0.25 Mg Tablet 0.25 Mg PO DAILY24 Aspirin 325 Mg Tablet 325 Mg PO DAILY24 Lubricant Eye Drops (Carboxymethylcellulose Sodium) 1 Each Droperette 1 Each OP QID Omeprazole 20 Mg Capsule. 20 Mg PO TIW ALBERTO BOYLE DO Sep 08, 2020 15:55
[2020-09-08 17:00] VITALS: BP 169/53
--- NOTE | 2020-09-08 18:23 | DIREP ---
PROCEDURE:CHEST 1 VIEW COMPARISON:[facility], CT, CT CHEST W/O, 09/06/2020, 05:43 AM. [facility], CR, XRAY CHEST SINGLE VW, 09/06/2020, 04:31 AM. [facility], CR, XRAY CHEST SINGLE VW, 05/19/2020, 08:38 PM. INDICATIONS:Pneumonia FINDINGS: LUNGS/PLEURA:Partial clearing of the left lung infiltrates. No new infiltrate identified. Right upper lobe infiltrates on prior CT are not well seen. No consolidation, effusion, or pneumothorax. VASCULATURE:Normal. Unremarkable pulmonary vasculature. CARDIAC:Normal. No cardiac silhouette abnormality or cardiomegaly. MEDIASTINUM:Atherosclerotic aorta with no visible aneurysm. BONES:Median sternotomy changes. No acute abnormality identified. OTHER:Stable left subclavian approach pacer device. CONCLUSION:Partial clearing of the left lung infiltrates. No new infiltrate identified. Dictated by: Mark Price M.D. on 09/08/2020 at 06:20 PM
== END 2020-09-08 16:35 | disposition home or self-care (01) | DRG 193 ==
LOC: ER 03:37 → MS 08:28 → OBSVTOIN 08:28
PROVIDERS: ADMIT Family Medicine; ATTEND Family Medicine
DX: J18.9 Pneumonia, unspecified organism (principal); J96.91 Respiratory failure, unspecified with hypoxia; I50.30 Unspecified diastolic (congestive) heart failure; E78.00 Pure hypercholesterolemia, unspecified; E78.5 Hyperlipidemia, unspecified; I11.0 Hypertensive heart disease with heart failure; K21.9 Gastro-esophageal reflux disease without esophagitis; I73.9 Peripheral vascular disease, unspecified; I25.10 Atherosclerotic heart disease of native coronary artery without angina pectoris; J02.0 Streptococcal pharyngitis; Z20.822 Contact with and (suspected) exposure to COVID-19; Z79.82 Long term (current) use of aspirin; Z79.899 Other long term (current) drug therapy; Z95.1 Presence of aortocoronary bypass graft; Z95.818 Presence of other cardiac implants and grafts; Z95.0 Presence of cardiac pacemaker; Z95.5 Presence of coronary angioplasty implant and graft; I25.2 Old myocardial infarction
CPT/HCPCS: 36415; 36600; 71045; 71250; 80053; 82553; 82728; 82803; 82948; 83605; 83615; 84145; 84484; 85025; 85610; 85730; 86140; 87040; 87070; 87205; 87426; 87633; 87804; 87880; 93005; 96365; 96368; 96372; 99285; G0378; J0456; J0696; J1650; J7050

== ENCOUNTER → 2021-01-08 | Outpatient (CLI) | payer OTHER, MEDICARE ==
[~2021-01-08] MED LIST changes: +ATOR40TA PO; +CLOP75TA PO; +ISOS30TA73 PO; -ISOS60TA2 PO; +ISOS60TA57 PO; +LEVO750T5 PO; +LISI20TA21 PO; -LISI40TA PO; +LISI40TA10 PO; +METO25TA4 PO
--- NOTE | 2021-01-08 17:43 | DIREP ---
PROCEDURE:XRAY SPINE LUMBAR 2-3 VWS COMPARISON:None. INDICATIONS:LOW BACK PAIN TECHNIQUE:AP, lateral, and coned down lateral views of the lumbar spine are provided. FINDINGS: ALIGNMENT:Normal. VERTEBRAE:No fracture. Preservation of vertebral body height. Mild degenerative bilateral facet change involving L3 through S1. DISK SPACES:There is marked loss of disc space with vacuum disc phenomena involving L3/L4 and L5/S1. There appears to be grade 1 anterolisthesis of L5 with respect to S1 of 7.7 mm. Loss of disc space with vacuum disc phenomena suspected at T11/T12. SPONDYLOLISTHESIS:None. SACROILIAC JOINTS:Normal. OTHER:Extensive atherosclerotic aortic vascular calcifications.. CONCLUSION:No fracture. Mild grade 1 anterolisthesis of L5. Significant degenerative disc disease with vacuum disc phenomena involving L3/L4 and L5/S1. Dictated by: Jose Nuñez MD on 01/08/2021 at 05:37 PM
--- NOTE | 2021-01-08 17:58 | DIREP ---
PROCEDURE:C-Spine 3 views TECHNIQUE:AP, lateral, and dens views of the cervical spine are provided. COMPARISON:None. INDICATIONS:NECK PAIN FINDINGS: ALIGNMENT:Normal. VERTEBRAE:No fracture. Moderate anterior endplate osteophytes are seen involving C5 through C7. There is mild to moderate degenerative facet hypertrophy seen involving C3 through C6 bilaterally. DISK SPACES:[id number] loss of disc space of C5/C6 and C6/7 CERVICAL RIBS:None. OTHER:Coarse calcifications are seen left side of the neck likely from carotid artery calcifications. There are metallic clips seen in the right side of the neck and may be from prior carotid endarterectomy. Aortic vascular calcifications are present. Sternotomy wires and findings consistent with CABG. Likely left-sided pacemaker versus ICD. CONCLUSION: No evidence of acute fracture. [id number] degenerative disc changes of C5/C6 and C6/C7 with moderate bilateral facet hypertrophic changes. Dictated by: Jose Nuñez MD on 01/08/2021 at 05:43 PM
== END | disposition home or self-care (01) ==
LOC: RAD 16:05
PROVIDERS: ATTEND Chiropractor
DX: M43.16 Spondylolisthesis, lumbar region (principal); M47.817 Spondylosis without myelopathy or radiculopathy, lumbosacral region; M47.812 Spondylosis without myelopathy or radiculopathy, cervical region; M51.37 Other intervertebral disc degeneration, lumbosacral region; M25.78 Osteophyte, vertebrae; I65.22 Occlusion and stenosis of left carotid artery; I70.0 Atherosclerosis of aorta
CPT/HCPCS: 72040; 72100

== ENCOUNTER → 2021-12-23 | Outpatient (CLI) | payer OTHER, MEDICARE ==
--- NOTE | 2021-12-23 21:53 | DIREP ---
PROCEDURE:XRAY SPINE LUMBAR 2-3 VWS COMPARISON:[facility] [place], , XRAY SPINE LUMBAR 2-3 VWS, 01/08/2021, 04:15 PM. INDICATIONS:M54.50 LOW BACK PAIN TECHNIQUE:AP, lateral, and coned down lateral views of the lumbar spine are provided. FINDINGS: ALIGNMENT:5 mm anterolisthesis of L5 on S1. VERTEBRAE:Bilateral pars defects at L5. Normal vertebral body height. Diffuse anterior lateral osteophyte formation. DISK SPACES:Moderate loss of disc height at the L3-4 and L5-S1 levels. SPONDYLOLISTHESIS:None. SACROILIAC JOINTS:Normal. OTHER:Aortic atherosclerosis. CONCLUSION:Bilateral pars defects at L5, with degenerative changes as above. No acute bony abnormality. Dictated by: Theresa Martinez M.D. on 12/23/2021 at 09:51 PM
--- NOTE | 2021-12-23 21:56 | DIREP ---
PROCEDURE:XRAY SACRUM COCCYX MIN 2VWS COMPARISON:None. INDICATIONS:M54.50 LOW BACK PAIN FINDINGS: BONES:No fracture. Anterolisthesis of L5 on S1 with bilateral pars defects. JOINTS:Diffuse degenerative changes. Sacroiliac osteophytosis. SOFT TISSUES:Vascular calcification. OTHER:No additional findings. CONCLUSION:Degenerative changes without acute bony abnormality. Dictated by: Theresa Martinez M.D. on 12/23/2021 at 09:52 PM
== END | disposition home or self-care (01) ==
LOC: RAD 15:13
PROVIDERS: ATTEND Nurse Practitioner Family
DX: M54.50 Low back pain, unspecified (principal); I70.0 Atherosclerosis of aorta; Q89.9 Congenital malformation, unspecified
CPT/HCPCS: 72100; 72220

== ENCOUNTER → 2022-02-24 | Outpatient (CLI) | payer MEDICARE ==
--- NOTE | 2022-02-24 10:53 | DIREP ---
PROCEDURE:XRAY SHOULDER MIN 2 VWS-RT COMPARISON:None. INDICATIONS:M25.511 RIGHT SHOULDER PAIN FINDINGS: BONES:No fracture. No malalignment. JOINTS:Normal glenohumeral and acromioclavicular joints. SOFT TISSUES:Normal. OTHER:Partially seen pacemaker, degenerative changes of the visualized cervical spine CONCLUSION:No acute findings Dictated by: Arpit Lockett MD on 02/24/2022 at 10:46 AM
== END | disposition home or self-care (01) ==
LOC: RAD 09:09
PROVIDERS: ATTEND Nurse Practitioner Family
DX: M25.511 Pain in right shoulder (principal)
CPT/HCPCS: 73030-RT

== ENCOUNTER → 2022-03-09 | Outpatient (CLI) | payer MEDICARE ==
[~2022-03-09] MED LIST changes: +LIDOCAINE 1% VIAL ONE
--- NOTE | 2022-03-09 14:58 | DIREP ---
PROCEDURE:CT UPPER EXTREMITY-RT W COMPARISON:None. INDICATIONS:SHOULDER PAIN; 10 cc omni 240, 2 images, 11.61 mgy, 1.1 fluoro time TECHNIQUE:Axial images were obtained through the right shoulder following the intra-articular administration of iodinated contrast. Sagittal oblique and coronal oblique reformatted images were also obtained. FINDINGS: BONES:No fractures or destructive lesions. There is chondromalacia along the medial aspect of the humeral head series 93230, image 37. The articular cartilage in the glenoid is intact. SOFT TISSUES:Full-thickness tear is present in the distal posterior supraspinatus extending to the infraspinatus tendon measuring 2.22 x 1.75 cm (medial-lateral by AP) on coronal series [id number], image 42 and sagittal series [id number], image 7. The teres minor and subscapularis tendons are intact. There is degeneration in the posterior labrum series 4, image 27. Contrast extends from the subacromial subdeltoid bursa into the acromioclavicular joint space. OTHER:Negative. CONCLUSION: 1. Full-thickness tear supraspinatus and infraspinatus tendons. 2. Degeneration posterior labrum. 3. 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 4. Contrast extends from the subacromial subdeltoid bursa into the acromioclavicular joint capsule. Dictated by: Kwame Miles M.D. on 03/09/2022 at 02:48 PM
--- NOTE | 2022-03-09 15:05 | DIREP ---
PROCEDURE:ARTHROGRAM SHOULDER RIGHT COMPARISON:[facility], CT, CT UPPER EXTREMITY-RT W/O, 03/09/2022, 01:49 PM. INDICATIONS:RIGHT SHOULDER PAIN; 10 cc omni 240, 2 images, 11.61 mgy, 1.1 fluoro time TECHNIQUE:The patient was first informed of the nature of the procedure, alternatives and risks. Questions were answered and informed consent obtained. A fluoroscopic guided arthrogram was then performed of the right shoulder in the usual sterile fashion using non-ionic contrast material. FINDINGS: JOINT:Contrast extends into the subacromial subdeltoid bursa consistent with full-thickness supraspinatus tendon tear. OTHER:Negative. FLUORO TIME: 1.1 seconds. NUMBER OF IMAGES: 2 CONCLUSION:Satisfactory right shoulder arthrogram. Please see report of CT scan which will be obtained immediately following this procedure. Dictated by: Kwame Miles M.D. on 03/09/2022 at 03:01 PM
== END | disposition home or self-care (01) ==
LOC: RAD 12:09
PROVIDERS: ATTEND Orthopaedic Surgery
DX: S46.911A Strain of unspecified muscle, fascia and tendon at shoulder and upper arm level, right arm, initial encounter (principal); S43.401A Unspecified sprain of right shoulder joint, initial encounter; M75.51 Bursitis of right shoulder; M94.211 Chondromalacia, right shoulder; X58.XXXA Exposure to other specified factors, initial encounter; Y93.89 Activity, other specified; Y92.89 Other specified places as the place of occurrence of the external cause; Y99.8 Other external cause status
CPT/HCPCS: 73040; 73200; J2001; Q9966